=== PATIENT | female | born 1960 | race American Indian/Alaskan Native ===

== ENCOUNTER 2017-12-10 17:26 | Emergency (ER) | payer SELFPAY ==
[2017-12-10 17:47] VITALS: BP 150/86
== END 2017-12-10 17:47 | disposition left against medical advice (07) ==
LOC: ED 17:26
DX: H57.8 Other specified disorders of eye and adnexa (principal); Z53.21 Procedure and treatment not carried out due to patient leaving prior to being seen by health care provider

== ENCOUNTER 2017-12-13 10:59 | Emergency (ER) | payer OTHER ==
[2017-12-13 11:28] VITALS: BP 127/75
--- NOTE | 2017-12-13 13:32 | Emergency Department Report ---
ED General Adult HPI - General Chief complaint: Eye Problems Stated complaint: SWOLLEN EYES Time Seen by Provider: 12/13/17 13:24 Source: patient Mode of arrival: Ambulatory Limitations: No Limitations - History of Present Illness Initial comments: Patient is a 57-year-old female past medical history of face discoloration who presents with bilateral eyelid discoloration and minor eyelid pain. Patient states symptoms have been going on for months. She was most recently exposed to poison [place] and had abrasions on her body everywhere. She said the rash on her body has decreased however the rash on her eyelids remains the same. Patient has been to multiple ERs getting prescriptions of steroids and Keflex. However she has not seen a glaucoma specialist. She states that she goes to the ER so much because she will be able to see her glaucoma specialist until January. Patient denies any change in vision any blurry vision any headache any fever or any chills. This is the same problem patient has had for the last several months. - Related Data Previous Rx's Medication Instructions Recorded Last Taken Type Acetaminophen/Codeine [Tylenol #3] 1 tab PO TID PRN #9 tab 09/24/15 Unknown Rx metroNIDAZOLE [Flagyl TAB] 500 mg PO Q12HR #14 tab 09/24/15 Unknown Rx predniSONE [Deltasone] 50 mg PO QDAY #6 tab 09/29/15 Unknown Rx Prednisone [predniSONE 10 mg 10 mg PO .TAPER #1 tab.ds.pk 12/13/17 Unknown Rx (6-Day Pack, 21 Tabs)] Allergies Allergy/AdvReac Type Severity Reaction Status Date / Time No Known Allergies Allergy Verified 09/24/15 09:07 ED Review of Systems ROS: Stated complaint: SWOLLEN EYES Other details as noted in HPI Constitutional: denies: chills, fever Eyes: denies: eye pain, eye discharge, vision change ENT: denies: ear pain, throat pain Respiratory: denies: cough, shortness of breath, wheezing Cardiovascular: denies: chest pain, palpitations Endocrine: no symptoms reported Gastrointestinal: denies: abdominal pain, nausea, diarrhea Genitourinary: denies: urgency, dysuria, discharge Musculoskeletal: denies: back pain, joint swelling, arthralgia Skin: as per HPI, rash, change in color. denies: lesions Neurological: denies: headache, weakness, paresthesias Psychiatric: denies: anxiety, depression Hematological/Lymphatic: denies: easy bleeding, easy bruising ED Past Medical Hx - Past Medical History Hx Hypertension: Yes - Surgical History Additional Surgical History: Partial hysterectomy - Social History Smoking Status: Current Every Day Smoker Substance Use Type: None - Medications Home Medications: Home Medications Medication Instructions Recorded Confirmed Last Taken Type Acetaminophen/Codeine [Tylenol #3] 1 tab PO TID PRN #9 tab 09/24/15 Unknown Rx metroNIDAZOLE [Flagyl TAB] 500 mg PO Q12HR #14 tab 09/24/15 Unknown Rx predniSONE [Deltasone] 50 mg PO QDAY #6 tab 09/29/15 Unknown Rx Prednisone [predniSONE 10 mg 10 mg PO .TAPER #1 tab.ds.pk 12/13/17 Unknown Rx (6-Day Pack, 21 Tabs)] ED Physical Exam - General Limitations: No Limitations General appearance: alert, in no apparent distress - Head Head exam: Present: atraumatic, normocephalic - Eye Eye exam: Present: normal appearance - ENT ENT exam: Present: mucous membranes moist - Neck Neck exam: Present: normal inspection - Respiratory Respiratory exam: Present: normal lung sounds bilaterally. Absent: respiratory distress - Cardiovascular Cardiovascular Exam: Present: regular rate, normal rhythm. Absent: systolic murmur, diastolic murmur, rubs, gallop - GI/Abdominal GI/Abdominal exam: Present: soft, normal bowel sounds - Extremities Exam Extremities exam: Present: normal inspection - Back Exam Back exam: Present: normal inspection - Neurological Exam Neurological exam: Present: alert, oriented X3 - Psychiatric Psychiatric exam: Present: normal affect, normal mood - Skin Skin exam: Present: warm, dry, intact. Absent: normal color (pink discolartion on eyes bilaterally ), rash ED Course Vital Signs 12/13/17 11:26 Temperature 98.4 F Pulse Rate 78 Respiratory 18 Rate Blood Pressure 127/75 O2 Sat by Pulse 98 Oximetry ED Medical Decision Making - Medical Decision Making Cdx: eye discoloration 2/2 poison [place] exposure DDx: contact dermatitis, skin change 2/2 inflammatory condition I will give pt rx for steroids and I will send pt home. Discussed plan with patient and patient agrees with plan. Additional verbal discharge instructions were given. Critical care attestation.: If time is entered above; I have spent that time in minutes in the direct care of this critically ill patient, excluding procedure time. ED Disposition Clinical Impression: Eyelid pain of both eyes, Discoloration of skin of face Disposition: - TO HOME OR SELFCARE Is pt being admited?: No Does the pt Need Aspirin: No Condition: Stable Prescriptions: Prednisone [predniSONE 10 mg (6-Day Pack, 21 Tabs)] 10 mg PO .TAPER #1 tab.ds.pk Referrals: CHRISTI HUI MD [Staff Physician] - 3-5 Days
== END 2017-12-13 13:34 | disposition home or self-care (01) ==
LOC: ED 10:59
DX: H57.13 Ocular pain, bilateral (principal); L81.8 Other specified disorders of pigmentation; I10 Essential (primary) hypertension; F17.200 Nicotine dependence, unspecified, uncomplicated; Z90.711 Acquired absence of uterus with remaining cervical stump
CPT/HCPCS: 99282

== ENCOUNTER 2019-08-18 09:54 | Emergency (ER) | payer SELFPAY ==
[2019-08-18 10:15] VITALS: BP 150/84
--- NOTE | 2019-08-18 10:55 | Emergency Department Report ---
Chief Complaint: Upper Respiratory Infection Stated Complaint: ACHES/COLD/PAIN Time Seen by Provider: 08/18/19 10:51 - HPI History of Present Illness: 59-year-old -Chinese female presents to the emergency room stating she thinks she has the flu. Patient reports that she has body aches and intermittent cough runny nose headache that's been going on for 1 week. Patient pushes only taken Tylenol. Patient reports a subjective fever at home but no fever today. Patient has no past medical history takes no medications on a daily basis and has no known drug allergies. - Exam Vital Signs: Vital Signs 08/18/19 10:14 Temperature 98.3 F Pulse Rate 80 Respiratory 20 Rate Blood Pressure 150/84 [Right] O2 Sat by Pulse 98 Oximetry Physical Exam: Gen: alert oriented NAD Mouth moist, neck is supple nontender no lymphedema Cardic: regular rate and rhythm no murmurs appreciated Resp: Clear to auscultation bilateral no wheezing no rales or rhonchi. Abdomen: Soft nontender nondistended normal bowel sounds. MSE screening note: Focused history and physical exam performed. Due to findings the following was ordered: 59-year-old -Chinese female presents to the emergency room stating she thinks she has the flu. Patient reports that she has body aches and intermittent cough runny nose headache that's been going on for 1 week. Patient pushes only taken Tylenol. Patient reports a subjective fever at home but no fever today. Patient has no past medical history takes no medications on a daily basis and has no known drug allergies. She is to take ibuprofen or Tylenol. She can try [id number]-[id number] cold medications such Carmencita-[place] Plus, NyQuil, DayQuil or Robitussin. ED Disposition for MSE Clinical Impression: Viral syndrome Disposition: Z-07 MED SCREENING EXAM-LEFT Is pt being admited?: No Does the pt Need Aspirin: No Condition: Stable Instructions: Viral Syndrome (ED) Additional Instructions: Use Tylenol and/or ibuprofen [id number] cough medications such as Carmencita- [place] plus, NyQuil, DayQuil, Robitussin. Increase your fluid intake advance her diet as tolerated. Follow up with a primary care provider. Forms: Work/School Release Form(ED)
== END 2019-08-18 11:16 | disposition left against medical advice (07) ==
LOC: ED 09:54
DX: B34.9 Viral infection, unspecified (principal)

== ENCOUNTER 2022-06-01 10:59 | Emergency (ER) | payer SELFPAY ==
--- NOTE | 2022-06-01 11:33 | Emergency Department Report ---
ED General Adult HPI - General Stated complaint: COLD PUI?: Yes Time Seen by Provider: 06/01/22 11:10 Source: patient Mode of arrival: Ambulatory - History of Present Illness Initial comments: Patient comes in for 3 day history of diarrhea, , fever, running nose fatigue and sweats. Has been vaccinated. Concern for possible exposure. No PCP. Onset/Timin -: days(s) - Related Data Previous Rx's Medication Instructions Recorded Last Taken Type Acetaminophen/Codeine [Tylenol #3] 1 tab PO TID PRN #9 tab 09/24/15 Unknown Rx metroNIDAZOLE [Flagyl TAB] 500 mg PO Q12HR #14 tab 09/24/15 Unknown Rx predniSONE [Deltasone] 50 mg PO QDAY #6 tab 09/29/15 Unknown Rx Prednisone [predniSONE 10 mg 10 mg PO .TAPER #1 tab.ds.pk 12/13/17 Unknown Rx (6-Day Pack, 21 Tabs)] Allergies Allergy/AdvReac Type Severity Reaction Status Date / Time No Known Allergies Allergy Verified 06/01/22 11:12 ED Review of Systems ROS: Stated complaint: COLD Other details as noted in HPI Constitutional: diaphoresis, fever, weakness Respiratory: denies: shortness of breath Cardiovascular: denies: chest pain Gastrointestinal: diarrhea. denies: abdominal pain, vomiting Genitourinary: denies: urgency, dysuria, discharge Musculoskeletal: back pain, myalgia Skin: denies: rash, lesions Neurological: denies: headache Psychiatric: denies: anxiety, depression ED Past Medical Hx - Past Medical History Hx Hypertension: Yes - Surgical History Additional Surgical History: Partial hysterectomy - Social History Smoking Status: Current Every Day Smoker Substance Use Type: None - Medications Home Medications: Home Medications Medication Instructions Recorded Confirmed Last Taken Type Acetaminophen/Codeine [Tylenol #3] 1 tab PO TID PRN #9 tab 09/24/15 Unknown Rx metroNIDAZOLE [Flagyl TAB] 500 mg PO Q12HR #14 tab 09/24/15 Unknown Rx predniSONE [Deltasone] 50 mg PO QDAY #6 tab 09/29/15 Unknown Rx Prednisone [predniSONE 10 mg 10 mg PO .TAPER #1 tab.ds.pk 12/13/17 Unknown Rx (6-Day Pack, 21 Tabs)] ED Physical Exam - General General appearance: alert, in no apparent distress - Head Head exam: Present: atraumatic, normocephalic - Eye Eye exam: Present: normal appearance, EOMI - ENT ENT exam: Present: mucous membranes moist - Neck Neck exam: Present: normal inspection, full ROM - Respiratory Respiratory exam: Present: normal lung sounds bilaterally. Absent: respiratory distress, chest wall tenderness, accessory muscle use - Cardiovascular Cardiovascular Exam: Present: regular rate - GI/Abdominal GI/Abdominal exam: Absent: soft, distended - Extremities Exam Extremities exam: Present: normal inspection, full ROM. Absent: tenderness - Back Exam Back exam: Present: full ROM. Absent: muscle spasm - Neurological Exam Neurological exam: Present: alert, oriented X3, normal gait - Psychiatric Psychiatric exam: Present: normal affect, normal mood - Skin Skin exam: Present: warm, dry, intact, normal color. Absent: rash ED Medical Decision Making - Medical Decision Making Patien seen by me with covid like symptoms. Vitals are stable and NAD. Recommend ibuprofen or tylenol. Refer to urgent care for possible COVID need testing. Critical care attestation.: If time is entered above; I have spent that time in minutes in the direct care of this critically ill patient, excluding procedure time. ED Disposition Clinical Impression: Viral syndrome Disposition: 01 HOME / SELF CARE / HOMELESS Is pt being admited?: No Does the pt Need Aspirin: No Condition: Stable Instructions: Viral Respiratory Infection, [id number], Hand Washing, [id number] Additional Instructions: Please follow up at an urgent care clinic for covid testing. Tylenol or Ibuprofen for pain. Referrals: [facility] [Provider Group] - 3-5 Days Forms: Work/School Release Form(ED) Time of Disposition: 11:39
[2022-06-01 12:08] VITALS: BP 163/93
== END 2022-06-01 12:08 | disposition home or self-care (01) ==
LOC: ED 10:59
DX: B34.9 Viral infection, unspecified (principal); I10 Essential (primary) hypertension; F17.200 Nicotine dependence, unspecified, uncomplicated
CPT/HCPCS: 99282